=== PATIENT | male | born 1975 | race Caucasian/White ===

== ENCOUNTER 2019-09-21 03:14 | Inpatient (IN) | payer OTHER ==
[2019-09-21 03:44] VITALS: BMI 24.6
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
[2019-09-21] MEDS ORDERED: LIDOCAINE 5% TOPICAL PATCH TP ONE (05:00)
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
[2019-09-21 05:37] LABS: BASO % 0.9 % (0-2.0); EOS % 2.6 % (0-4.5); HEMATOCRIT 23.2 % (35.4-49); HEMOGLOBIN 7.5 GM/dL (11.7-16.9); LYMPH % 13.1 % (8-40); MCH 30.1 pg (25.7-33.7); MCHC 32.4 g/dl (32.0-35.9); MEAN CELL VOLUME 92.7 fl (80-96); MEAN PLT VOLUME 9.7 fl (7.5-11.1); MONO % 7.9 % (3.8-10.2); NEUT % 75.5 % (42.8-82.8); PLATELET COUNT 629 K/MM3 (134-434); RDW 14.2 % (11.9-15.9); WHITE BLOOD COUNT 27.6 K/mm3 (4.0-10.0)
[2019-09-21 06:32] LABS: BASO % 0.4 % (0-2.0); EOS % 2.9 % (0-4.5); HEMATOCRIT 24.5 % (35.4-49); HEMOGLOBIN 7.9 GM/dL (11.7-16.9); LYMPH % 13.5 % (8-40); MCHC 32.3 g/dl (32.0-35.9); MEAN PLT VOLUME 9.9 fl (7.5-11.1); MONO % 6.9 % (3.8-10.2); NEUT % 76.3 % (42.8-82.8); PLATELET COUNT 643 K/MM3 (134-434); RBC 2.63 M/mm3 (4.00-5.60); RDW 14.2 % (11.9-15.9); WHITE BLOOD COUNT 27.1 K/mm3 (4.0-10.0)
[2019-09-21] MEDS ORDERED: morphine CARPU-JECT 2 MG/1 ML DISP.SYRIN IVPUSH ONE (06:43)
[2019-09-21] MEDS ORDERED: MORPHINE SULFATE 2 MG/ML VIAL ONE ×2 (06:50→09:23)
[2019-09-21 06:59] LABS: ALBUMIN 2.8 g/dl (3.4-5.0); BILIRUBIN,TOTAL 0.2 mg/dL (0.2-1); BLOOD UREA NITROGEN 13.6 mg/dL (7-18); CALCIUM 7.9 mg/dL (8.5-10.1); CREATININE 0.9 mg/dL (0.55-1.3); POTASSIUM 4.1 mmol/L (3.5-5.1); TOT PROT 6.4 g/dl (6.4-8.2)
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
[2019-09-21] MEDS ORDERED: morphine CARPU-JECT 4 MG/1 ML DISP.SYRIN IVPUSH ONE (08:30)
[2019-09-21] MEDS ORDERED: CEFTRIAXONE 1,000 MG in DEXTROSE 5%-WATER - 50 ML IVPB ONE (08:31)
[2019-09-21] MEDS ORDERED: AZITHROMYCIN IVPB 500 MG in DEXTROSE 5%-WATER - 250 ML IVPB ONE (08:31)
[2019-09-21] MEDS ORDERED: AZITHROMYCIN IVPB 500 MG/250 ML BAG IVPB ONE (09:24)
[2019-09-21] MEDS ORDERED: CEFTRIAXONE 1 GM/50 ML BAG ONE (09:24)
[2019-09-21 10:14] LABS: ANISOCYTOSIS 1+; MACROCYTOSIS 0; PLATELET ESTIMATE INCREASED
[2019-09-21] MEDS ORDERED: LIDOCAINE 5% TOPICAL PATCH ONE (11:44)
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
[2019-09-21] MEDS ORDERED: LIDOCAINE HCL 5% TOP OINTMENT 50 GM TUBE TP ONE (11:47)
[2019-09-21] MEDS ORDERED: oxyCODONE HCL 5 MG TABLET PO PRN (11:47)
[2019-09-21] MEDS ORDERED: ALBUTEROL SO4 2.5/IPRATROPIUM 0.5 INH SOL 3 ML VIAL.NEB. NEB PRN (11:49)
[2019-09-21] MEDS ORDERED: oxyCODONE HCL 5 MG TABLET ONE (11:58)
[2019-09-21] MEDS ORDERED: PIPERACILLIN/TAZOB 4.5 GM 4.5 GM in DEXTROSE 5%-WATER 100 ML IVPB SCH (12:00)
[2019-09-21] MEDS ORDERED: PIPERACILLIN/TAZOB 4.5 GM 4.5 GM/100 ML BAG IVPB ONE (12:04)
[2019-09-21] MEDS: SODIUM CHLORIDE 1,000 ML IV SCH (12:18)
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
[2019-09-21 12:32] LABS: PH,URINE 6.5 (5.0-8.0); URINE APPEARANCE CLEAR; URINE BILIRUBIN NEGATIVE (NEGATIVE); URINE COLOR YELLOW; URINE GLUCOSE (UA) NEGATIVE (NEGATIVE); URINE KETONE NEGATIVE (NEGATIVE); URINE LEUK ESTERASE NEGATIVE (NEGATIVE); URINE NITRITE NEGATIVE (NEGATIVE); URINE PROTEIN NEGATIVE (NEGATIVE); URINE UROBILINOGEN 0.2 mg/dL (0.2-1.0)
[2019-09-21] MEDS ORDERED: ACETAMINOPHEN 325 MG TABLET (FP) ONE (13:35)
[2019-09-21] MEDS: ACETAMINOPHEN 325 MG TABLET (FP) PO PRN ×3 (13:37→20:26)
--- NOTE | 2019-09-21 14:04 | EKG ---
Test Reason : Blood Pressure : / mmHG Vent. Rate : 092 BPM Atrial Rate : 092 BPM P-R Int : 162 ms QRS Dur : 098 ms QT Int : 370 ms P-R-T Axes : 063 -01 047 degrees QTc Int : 457 ms NORMAL SINUS RHYTHM INCOMPLETE RIGHT BUNDLE BRANCH BLOCK BORDERLINE ECG WHEN COMPARED WITH ECG OF 26-NOV-2008 02:07, VENT. RATE HAS INCREASED BY 36 BPM Confirmed by PALAK CONNOR MD ([id number]) on 09/21/2019 2:04:17 PM Referred By: Confirmed By:PALAK CONNOR MD
[2019-09-21] MEDS ORDERED: FLU VACCINE QUAD 60 MCG/0.5 ML (MDV 19-20) IM ONE (16:10)
[2019-09-21] MEDS: oxyCODONE HCL 5 MG TABLET PO PRN ×2 (16:26→20:25)
[2019-09-21] MEDS ORDERED: PIPERACILLIN/TAZOBACTAM 3.375 GM VIAL IVPB ONE (16:51)
[2019-09-21] MEDS ORDERED: DEXTROSE 5%-WATER - 50 ML IVPB ONE (16:51)
[2019-09-21] MEDS ORDERED: LIDOCAINE PATCH REMOVAL MC SCH (17:00)
[2019-09-21] MEDS: PIPERACILLIN/TAZOB 3.375 GM 3.375 GM in DEXTROSE 5%-WATER - 50 ML IVPB SCH (17:23)
[2019-09-21] MEDS ORDERED: LIDOCAINE 5% TOPICAL PATCH TP SCH ×3 (17:45→18:00)
[2019-09-22] MEDS: oxyCODONE HCL 5 MG TABLET PO PRN ×5 (00:30→22:18)
[2019-09-22] MEDS: ACETAMINOPHEN 325 MG TABLET (FP) PO PRN ×5 (00:31→22:19)
[2019-09-22] MEDS ORDERED: DEXTROSE 5%-WATER - 50 ML IVPB ONE ×3 (00:48→17:01)
[2019-09-22] MEDS ORDERED: PIPERACILLIN/TAZOBACTAM 3.375 GM VIAL IVPB ONE ×3 (00:48→17:00)
[2019-09-22] MEDS: PIPERACILLIN/TAZOB 3.375 GM 3.375 GM in DEXTROSE 5%-WATER - 50 ML IVPB SCH ×3 (01:08→17:26)
[2019-09-22 03:11] LABS: ALBUMIN 2.4 g/dl (3.4-5.0); ALK PHOS 90 U/L (45-117); ANION GAP 5 MMOL/L (8-16); BILIRUBIN,TOTAL 0.1 mg/dL (0.2-1); BLOOD UREA NITROGEN 15.8 mg/dL (7-18); CALCIUM 7.9 mg/dL (8.5-10.1); CHLORIDE 109 mmol/L (98-107); CO2 27 mmol/L (21-32); CREATININE 0.8 mg/dL (0.55-1.3); GLUCOSE,RANDOM 100 mg/dL (74-106); POTASSIUM 4.2 mmol/L (3.5-5.1); SGOT/AST 24 U/L (15-37); SGPT/ALT 30 U/L (13-61); SODIUM 142 mmol/L (136-145); TOT PROT 5.5 g/dl (6.4-8.2)
[2019-09-22] MEDS: LIDOCAINE PATCH REMOVAL MC SCH (06:07)
[2019-09-22] MEDS ORDERED: MORPHINE SULFATE 2 MG/ML VIAL IVPUSH ONE (06:16)
[2019-09-22] MEDS ORDERED: LIDOCAINE 5% TOPICAL PATCH TP ONE (06:16)
[2019-09-22 09:01] LABS: BASO % 0.9 % (0-2.0); EOS % 7.2 % (0-4.5); HEMATOCRIT 23.5 % (35.4-49); HEMOGLOBIN 7.7 GM/dL (11.7-16.9); LYMPH % 17.8 % (8-40); MCHC 32.8 g/dl (32.0-35.9); MEAN CELL VOLUME 94.6 fl (80-96); MEAN PLT VOLUME 9.6 fl (7.5-11.1); MONO % 8.4 % (3.8-10.2); NEUT % 65.7 % (42.8-82.8); PLATELET COUNT 666 K/MM3 (134-434); RBC 2.48 M/mm3 (4.00-5.60); RDW 14.4 % (11.9-15.9); WHITE BLOOD COUNT 15.7 K/mm3 (4.0-10.0)
[2019-09-22 10:02] LABS: ALBUMIN 2.6 g/dl (3.4-5.0); BILIRUBIN,TOTAL 0.2 mg/dL (0.2-1); BLOOD UREA NITROGEN 12.3 mg/dL (7-18); CALCIUM 8.9 mg/dL (8.5-10.1); CREATININE 0.8 mg/dL (0.55-1.3); POTASSIUM 4.4 mmol/L (3.5-5.1); TOT PROT 6.2 g/dl (6.4-8.2)
[2019-09-22] MEDS: POLYETHYLENE GLYCOL 3350 119 GM BTL PO SCH (10:14)
--- NOTE | 2019-09-22 10:36 | PN ---
Progress Note (short form) - Note Progress Note: has pain in left side of chest No sob coughing+ no fever abd pain + tolerating diet Vital Signs - 24 hr 09/21/19 09/21/19 09/22/19 15:03 21:00 01:55 Temperature 98.2 F Pulse Rate 79 Pulse Rate [ 74 Apical] Respiratory 18 18 18 Rate Blood Pressure 103/62 Blood Pressure 108/61 [Left Arm] O2 Sat by Pulse 99 99 Oximetry (%) Current Medications Generic Name Dose Route Start Last Admin Trade Name Freq PRN Reason Stop Dose Admin Acetaminophen 650 mg 09/21/19 11:47 09/21/19 16:25 Tylenol - PO 650 mg Q6H PRN Administration FEVER Acetaminophen 650 mg 09/21/19 15:47 09/22/19 10:14 Tylenol - PO 650 mg Q4H PRN Administration PAIN LEVEL 7-10 Albuterol/Ipratropium 1 amp 09/21/19 11:49 Duoneb - NEB Q6H PRN SHORTNESS OF BREATH Sodium Chloride 1,000 mls @ 83 mls/hr 09/21/19 12:00 09/21/19 12:18 Normal Saline - IV 83 mls/hr ASDIR SELENE Administration Piperacillin Sod/Tazobactam 50 mls @ 100 mls/hr 09/21/19 18:00 09/22/19 10:14 Sod 3.375 gm/ Dextrose IVPB 100 mls/hr Q8H-IV SELENE Administration Protocol Lidocaine 2 patch 09/22/19 10:32 Lidoderm Patch - TP DAILY@1800 SELENE Miscellaneous 1 each 09/22/19 06:00 09/22/19 06:07 Lidoderm Patch Removal MC 1 each DAILY@0600 SELENE Administration Miscellaneous 1 each 09/22/19 18:00 Lidoderm Patch Removal MC 09/22/19 18:01 ONCE ONE Morphine Sulfate 2 mg 09/22/19 10:31 Morphine Injection - IVPUSH Q6H PRN PAIN LEVEL 6-10 Oxycodone HCl 10 mg 09/21/19 15:46 09/22/19 10:15 Roxicodone - PO 10 mg Q4H PRN Administration PAIN LEVEL 7-10 Polyethylene Glycol 17 gm 09/22/19 10:00 09/22/19 10:14 Miralax (For Daily Use) - PO 17 gm DAILY SELENE Administration Laboratory Results - last 24 hr 09/21/19 09/22/19 09/22/19 09:38 02:20 08:00 WBC 15.7 H RBC 2.48 L Hgb 7.7 L Hct 23.5 L MCV 94.6 MCH 31.0 MCHC 32.8 RDW 14.4 Plt Count 666 H MPV 9.6 Absolute Neuts (auto) 10.3 H Neutrophils % 65.7 Lymphocytes % 17.8 D Monocytes % 8.4 Eosinophils % 7.2 H D Basophils % 0.9 Nucleated RBC % 1 H Sodium 142 Potassium 4.2 Chloride 109 H Carbon Dioxide 27 Anion Gap 5 L BUN 15.8 Creatinine 0.8 Est GFR (CKD-EPI)AfAm 127.70 Est GFR (CKD-EPI)NonAf 110.18 Random Glucose 100 Calcium 7.9 L Total Bilirubin 0.1 L AST 24 ALT 30 Alkaline Phosphatase 90 Creatine Kinase 104 Troponin I < 0.02 Total Protein 5.5 L Albumin 2.4 L Urine Color Yellow Urine Appearance Clear Urine pH 6.5 Ur Specific [place] 1.005 L Urine Protein Negative Urine Glucose (UA) Negative Urine Ketones Negative Urine Blood Negative Urine Nitrite Negative Urine Bilirubin Negative Urine Urobilinogen 0.2 Ur Leukocyte Esterase Negative 09/22/19 08:00 WBC RBC Hgb Hct MCV MCH MCHC RDW Plt Count MPV Absolute Neuts (auto) Neutrophils % Lymphocytes % Monocytes % Eosinophils % Basophils % Nucleated RBC % Sodium 141 Potassium 4.4 Chloride 109 H Carbon Dioxide 26 Anion Gap 7 L BUN 12.3 Creatinine 0.8 Est GFR (CKD-EPI)AfAm 127.70 Est GFR (CKD-EPI)NonAf 110.18 Random Glucose 109 H Calcium 8.9 Total Bilirubin 0.2 AST 26 ALT 33 Alkaline Phosphatase 91 Creatine Kinase Troponin I Total Protein 6.2 L Albumin 2.6 L Urine Color Urine Appearance Urine pH Ur Specific [place] Urine Protein Urine Glucose (UA) Urine Ketones Urine Blood Urine Nitrite Urine Bilirubin Urine Urobilinogen Ur Leukocyte Esterase S1 S2 RRR Lungs decreased Abd -s oft, NT , jefferson+ No edema Ecchymosis left flank+ PLAN pain control OOB daily SCD iv antibiotics WBC better Spoke with ID give Pneumococcal vaccine Problem List - Problems (1) Splenic rupture Code(s): S36.09XA - OTHER INJURY OF SPLEEN, INITIAL ENCOUNTER (2) Atelectasis of left lung Code(s): J98.11 - ATELECTASIS (3) Left rib fracture Code(s): S22.32XA - FRACTURE OF ONE RIB, LEFT SIDE, INIT FOR CLOS FX Qualifiers: Encounter type: initial encounter Rib fracture type: multiple ribs Fracture type: closed Qualified Code(s): S22.42XA - Multiple fractures of ribs , left side, initial encounter for closed fracture (4) PNA (pneumonia) Code(s): J18.9 - PNEUMONIA, UNSPECIFIED ORGANISM Qualifiers: Pneumonia type: due to unspecified organism Laterality: left Lung location: lower lobe of lung Qualified Code(s): J18.9 - Pneumonia, unspecified organism
[2019-09-22] MEDS ORDERED: PNEUMOCOCCAL 23 VACCINE 0.5 ML VIAL IM ONE (12:00)
[2019-09-22] MEDS: SODIUM CHLORIDE 1,000 ML IV SCH (12:50)
[2019-09-22] MEDS: MORPHINE SULFATE 2 MG/ML VIAL IVPUSH PRN ×2 (13:03→19:35)
[2019-09-22] MEDS: LIDOCAINE 5% TOPICAL PATCH TP SCH (17:26)
--- NOTE | 2019-09-22 17:54 | EKG ---
Test Reason : Blood Pressure : / mmHG Vent. Rate : 077 BPM Atrial Rate : 077 BPM P-R Int : 176 ms QRS Dur : 100 ms QT Int : 410 ms P-R-T Axes : 054 -04 028 degrees QTc Int : 463 ms SINUS RHYTHM WITH PREMATURE ATRIAL COMPLEXES INCOMPLETE RIGHT BUNDLE BRANCH BLOCK BORDERLINE ECG WHEN COMPARED WITH ECG OF 21-SEP-2019 07:10, PREMATURE ATRIAL COMPLEXES ARE NOW PRESENT Confirmed by PALAK CONNOR MD ([id number]) on 09/22/2019 5:54:12 PM Referred By: Elvia VIDES Confirmed By:PALAK CONNOR MD
[2019-09-22] MEDS ORDERED: LIDOCAINE PATCH REMOVAL MC ONE (18:00)
--- NOTE | 2019-09-22 20:52 | PN ---
Progress Note, Physician History of Present Illness: Pt is alert, afebrile, without respiratory distress. c/o rib pain. - Current Medication List Current Medications: Active Medications Acetaminophen (Tylenol -) 650 mg PO Q6H PRN PRN Reason: FEVER Last Admin: 09/21/19 16:25 Dose: 650 mg Acetaminophen (Tylenol -) 650 mg PO Q4H PRN PRN Reason: PAIN LEVEL 7-10 Last Admin: 09/22/19 15:13 Dose: 650 mg Albuterol/Ipratropium (Duoneb -) 1 amp NEB Q6H PRN PRN Reason: SHORTNESS OF BREATH Sodium Chloride (Normal Saline -) 1,000 mls @ 83 mls/hr IV ASDIR [facility] Last Admin: 09/22/19 12:50 Dose: Not Given Piperacillin Sod/Tazobactam (Sod 3.375 gm/ Dextrose) 50 mls @ 100 mls/hr IVPB Q8H-IV SELENE; Protocol Last Admin: 09/22/19 17:26 Dose: 100 mls/hr Lidocaine (Lidoderm Patch -) 2 patch TP DAILY@1800 [facility] Last Admin: 09/22/19 17:26 Dose: 2 patch Miscellaneous (Lidoderm Patch Removal) 1 each MC DAILY@0600 [facility] Last Admin: 09/22/19 06:07 Dose: 1 each Morphine Sulfate (Morphine Sulfate) 2 mg IVPUSH Q6H PRN PRN Reason: PAIN LEVEL 6-10 Last Admin: 09/22/19 19:35 Dose: 2 mg Oxycodone HCl (Roxicodone -) 10 mg PO Q4H PRN PRN Reason: PAIN LEVEL 7-10 Last Admin: 09/22/19 15:12 Dose: 10 mg Polyethylene Glycol (Miralax (For Daily Use) -) 17 gm PO DAILY [facility] Last Admin: 09/22/19 10:14 Dose: 17 gm - Objective Vital Signs: Vital Signs Temperature 98.3 F 09/22/19 13:48 Pulse Rate 68 09/22/19 13:48 Respiratory Rate 18 09/22/19 13:48 Blood Pressure 111/63 09/22/19 13:48 O2 Sat by Pulse Oximetry (%) 98 09/22/19 09:00 Constitutional: Yes: No Distress, Calm Cardiovascular: Yes: Regular Rate and Rhythm Respiratory: Yes: CTA Bilaterally Gastrointestinal: Yes: Normal Bowel Sounds, Soft Genitourinary: Yes: WNL Musculoskeletal: Yes: Other (rib pain) Edema: No Integumentary: Yes: WNL Wound/Incision: Yes: Clean/Dry Neurological: Yes: Alert, Oriented Labs: CBC, BMP 09/22/19 08:00 09/22/19 08:00 Microbiology 09/21/19 13:05 Blood - Peripheral Venous Blood Culture - Preliminary NO GROWTH OBTAINED AFTER 24 HOURS, INCUBATION TO CONTINUE FOR 4 DAYS. 09/21/19 13:10 Blood - Peripheral Venous Blood Culture - Preliminary NO GROWTH OBTAINED AFTER 24 HOURS, INCUBATION TO CONTINUE FOR 4 DAYS. 09/21/19 09:38 Urine - Urine Clean Catch Urine Culture - Final NO GROWTH OBTAINED - ....Imaging Chest X-ray: Report Reviewed Cat Scan: Report Reviewed Problem List - Problems (1) Atelectasis of left lung Code(s): J98.11 - ATELECTASIS (2) Left rib fracture Code(s): S22.32XA - FRACTURE OF ONE RIB, LEFT SIDE, INIT FOR CLOS FX Qualifiers: Encounter type: initial encounter Rib fracture type: multiple ribs Fracture type: closed Qualified Code(s): S22.42XA - Multiple fractures of ribs , left side, initial encounter for closed fracture (3) PNA (pneumonia) Code(s): J18.9 - PNEUMONIA, UNSPECIFIED ORGANISM Qualifiers: Pneumonia type: due to unspecified organism Laterality: left Lung location: lower lobe of lung Qualified Code(s): J18.9 - Pneumonia, unspecified organism (4) Splenic rupture Code(s): S36.09XA - OTHER INJURY OF SPLEEN, INITIAL ENCOUNTER Assessment/Plan Leukocytosis PNA Traumatic splenic rupture s/p splenectomy Rib fractures Anemia -- wbc trending down -- continue antibiotics -- continue monitor wbc vitals currently stable
[2019-09-23] MEDS ORDERED: DEXTROSE 5%-WATER - 50 ML IVPB ONE ×3 (00:28→16:23)
[2019-09-23] MEDS ORDERED: PIPERACILLIN/TAZOBACTAM 3.375 GM VIAL IVPB ONE ×3 (00:28→16:22)
[2019-09-23] MEDS: PIPERACILLIN/TAZOB 3.375 GM 3.375 GM in DEXTROSE 5%-WATER - 50 ML IVPB SCH ×3 (01:12→17:07)
[2019-09-23] MEDS: MORPHINE SULFATE 2 MG/ML VIAL IVPUSH PRN ×4 (01:40→21:37)
[2019-09-23] MEDS: oxyCODONE HCL 5 MG TABLET PO PRN ×3 (04:08→23:42)
[2019-09-23] MEDS: ACETAMINOPHEN 325 MG TABLET (FP) PO PRN ×3 (04:10→23:43)
[2019-09-23] MEDS: LIDOCAINE PATCH REMOVAL MC SCH (06:35)
[2019-09-23 08:00] LABS: BASO % 0.8 % (0-2.0); EOS % 6.5 % (0-4.5); HEMATOCRIT 24.3 % (35.4-49); HEMOGLOBIN 7.7 GM/dL (11.7-16.9); LYMPH % 21.5 % (8-40); MCH 30.1 pg (25.7-33.7); MCHC 31.7 g/dl (32.0-35.9); MEAN PLT VOLUME 9.3 fl (7.5-11.1); MONO % 9.5 % (3.8-10.2); NEUT % 61.7 % (42.8-82.8); PLATELET COUNT 722 K/MM3 (134-434); RBC 2.56 M/mm3 (4.00-5.60); RDW 15.1 % (11.9-15.9)
[2019-09-23 08:54] LABS: ALBUMIN 2.6 g/dl (3.4-5.0); BILIRUBIN,TOTAL 0.3 mg/dL (0.2-1); BLOOD UREA NITROGEN 8.9 mg/dL (7-18); CALCIUM 9.5 mg/dL (8.5-10.1); CREATININE 0.8 mg/dL (0.55-1.3); POTASSIUM 5.2 mmol/L (3.5-5.1); TOT PROT 6.3 g/dl (6.4-8.2)
[2019-09-23] MEDS ORDERED: ONDANSETRON 4 MG/2 ML VIAL ONE (08:58)
[2019-09-23] MEDS: ONDANSETRON 4 MG/2 ML VIAL IVPB PRN ×4 (09:02→23:57)
[2019-09-23] MEDS: POLYETHYLENE GLYCOL 3350 119 GM BTL PO SCH (09:05)
--- NOTE | 2019-09-23 11:54 | PN ---
Progress Note (short form) - Note Progress Note: pt seen/ examined chart reviewed awake/comfortable was agitated earlier today walks in hallway Vital Signs Temp 98 F 09/23/19 06:00 Pulse 71 09/23/19 06:00 Resp 20 09/23/19 06:00 BP 116/69 09/23/19 06:00 Pulse Ox 98 09/23/19 08:30 Intake & Output 09/22/19 09/22/19 09/23/19 11:59 23:59 11:59 Intake Total 1797 350 350 Balance 1797 350 350 Intake: IV 747 Normal Saline - 1,000 ml 747 @ 83 mls/hr IV ASDIR SELENE Rx#:[id number] IVPB 50 50 50 Oral 480 300 300 Oral Supplement 520 Other: Voiding Method Toilet Toilet Toilet # Unmeasured Voids Void 2 1 1 Bowel Movement Yes: Formed brown stool as per patient No No # Bowel Movements 1 Active Medications Acetaminophen (Tylenol -) 650 mg PO Q6H PRN PRN Reason: FEVER Last Admin: 09/23/19 10:29 Dose: 650 mg Acetaminophen (Tylenol -) 650 mg PO Q4H PRN PRN Reason: PAIN LEVEL 7-10 Last Admin: 09/23/19 04:10 Dose: 650 mg Albuterol/Ipratropium (Duoneb -) 1 amp NEB Q6H PRN PRN Reason: SHORTNESS OF BREATH Sodium Chloride (Normal Saline -) 1,000 mls @ 83 mls/hr IV ASDIR SELENE Last Admin: 09/22/19 12:50 Dose: Not Given Piperacillin Sod/Tazobactam (Sod 3.375 gm/ Dextrose) 50 mls @ 100 mls/hr IVPB Q8H-IV SELENE; Protocol Last Admin: 09/23/19 09:05 Dose: 100 mls/hr Lidocaine (Lidoderm Patch -) 2 patch TP DAILY@1800 [facility] Last Admin: 09/22/19 17:26 Dose: 2 patch Miscellaneous (Lidoderm Patch Removal) 1 each MC DAILY@0600 [facility] Last Admin: 09/23/19 06:35 Dose: 1 each Morphine Sulfate (Morphine Sulfate) 2 mg IVPUSH Q6H PRN PRN Reason: PAIN LEVEL 6-10 Last Admin: 09/23/19 08:02 Dose: 2 mg Ondansetron HCl (Zofran Injection) 8 mg IVPB Q4H PRN PRN Reason: NAUSEA AND/OR VOMITING Last Admin: 09/23/19 09:02 Dose: 8 mg Oxycodone HCl (Roxicodone -) 10 mg PO Q4H PRN PRN Reason: PAIN LEVEL 7-10 Last Admin: 09/23/19 10:29 Dose: 10 mg Polyethylene Glycol (Miralax (For Daily Use) -) 17 gm PO DAILY [facility] Last Admin: 09/23/19 09:05 Dose: Not Given CBC, BMP 09/23/19 06:45 09/23/19 06:45 Microbiology 09/21/19 13:05 Blood Culture - Preliminary Blood - Peripheral Venous NO GROWTH OBTAINED AFTER 24 HOURS, INCUBATION TO CONTINUE FOR 4 DAYS. 09/21/19 13:10 Blood Culture - Preliminary Blood - Peripheral Venous NO GROWTH OBTAINED AFTER 24 HOURS, INCUBATION TO CONTINUE FOR 4 DAYS. 09/21/19 09:38 Urine Culture - Final Urine - Urine Clean Catch NO GROWTH OBTAINED Physical Exam Awake/ comfortable S1 S2 RRR Lungs decreased Abd -s oft, NT , jefferson+ No edema Ecchymosis left flank+ PLAN pain control- consider tapering opiods OOB daily SCD iv antibiotics WBC better Detox consult Zofron for nausea Problem List - Problems (1) Splenic rupture Code(s): S36.09XA - OTHER INJURY OF SPLEEN, INITIAL ENCOUNTER (2) Atelectasis of left lung Code(s): J98.11 - ATELECTASIS (3) Left rib fracture Code(s): S22.32XA - FRACTURE OF ONE RIB, LEFT SIDE, INIT FOR CLOS FX Qualifiers: Encounter type: initial encounter Rib fracture type: multiple ribs Fracture type: closed Qualified Code(s): S22.42XA - Multiple fractures of ribs , left side, initial encounter for closed fracture (4) PNA (pneumonia) Code(s): J18.9 - PNEUMONIA, UNSPECIFIED ORGANISM Qualifiers: Pneumonia type: due to unspecified organism Laterality: left Lung location: lower lobe of lung Qualified Code(s): J18.9 - Pneumonia, unspecified organism
[2019-09-23] MEDS ORDERED: PROMETHAZINE HCL 25 MG/1 ML VIAL IVPB ONE ×2 (14:00→14:45)
--- NOTE | 2019-09-23 14:53 | PN ---
Progress Note, Physician History of Present Illness: patient very naseous - Current Medication List Current Medications: Active Medications Acetaminophen (Tylenol -) 650 mg PO Q6H PRN PRN Reason: FEVER Last Admin: 09/23/19 10:29 Dose: 650 mg Acetaminophen (Tylenol -) 650 mg PO Q4H PRN PRN Reason: PAIN LEVEL 7-10 Last Admin: 09/23/19 04:10 Dose: 650 mg Albuterol/Ipratropium (Duoneb -) 1 amp NEB Q6H PRN PRN Reason: SHORTNESS OF BREATH Ascorbic Acid (Vitamin C -) 500 mg PO BID [facility] Sodium Chloride (Normal Saline -) 1,000 mls @ 83 mls/hr IV ASDIR [facility] Last Admin: 09/22/19 12:50 Dose: Not Given Piperacillin Sod/Tazobactam (Sod 3.375 gm/ Dextrose) 50 mls @ 100 mls/hr IVPB Q8H-IV [facility]ELENE; Protocol Last Admin: 09/23/19 09:05 Dose: 100 mls/hr Lidocaine (Lidoderm Patch -) 2 patch TP DAILY@1800 [facility] Last Admin: 09/22/19 17:26 Dose: 2 patch Miscellaneous (Lidoderm Patch Removal) 1 each MC DAILY@0600 [facility] Last Admin: 09/23/19 06:35 Dose: 1 each Morphine Sulfate (Morphine Sulfate) 2 mg IVPUSH Q6H PRN PRN Reason: PAIN LEVEL 6-10 Last Admin: 09/23/19 14:11 Dose: 2 mg Multivitamins/Minerals/Vitamin C (Tab-A-Vit -) 1 tab PO DAILY [facility] Ondansetron HCl (Zofran Injection) 8 mg IVPB Q4H PRN PRN Reason: NAUSEA AND/OR VOMITING Last Admin: 09/23/19 12:20 Dose: 8 mg Oxycodone HCl (Roxicodone -) 10 mg PO Q4H PRN PRN Reason: PAIN LEVEL 7-10 Last Admin: 09/23/19 10:29 Dose: 10 mg Polyethylene Glycol (Miralax (For Daily Use) -) 17 gm PO DAILY [facility] Last Admin: 09/23/19 09:05 Dose: Not Given - Objective Vital Signs: Vital Signs Temperature 97.8 F 09/23/19 13:36 Pulse Rate 83 09/23/19 13:36 Respiratory Rate 20 09/23/19 13:36 Blood Pressure 121/74 09/23/19 13:36 O2 Sat by Pulse Oximetry (%) 98 09/23/19 08:30 Constitutional: Yes: Calm, Mild Distress Cardiovascular: Yes: S1, S2 Respiratory: Yes: Regular, CTA Bilaterally Gastrointestinal: Yes: Normal Bowel Sounds, Soft Musculoskeletal: Yes: WNL Extremities: Yes: WNL Wound/Incision: Yes: Clean/Dry Neurological: Yes: Alert, Oriented Psychiatric: Yes: Alert, Oriented Labs: CBC, BMP 09/23/19 06:45 09/23/19 06:45 Assessment/Plan Problem List - Problems (1) Atelectasis of left lung Code(s): J98.11 - ATELECTASIS (2) Left rib fracture Code(s): S22.32XA - FRACTURE OF ONE RIB, LEFT SIDE, INIT FOR CLOS FX Qualifiers: Encounter type: initial encounter Rib fracture type: multiple ribs Fracture type: closed Qualified Code(s): S22.42XA - Multiple fractures of ribs , left side, initial encounter for closed fracture (3) PNA (pneumonia) Code(s): J18.9 - PNEUMONIA, UNSPECIFIED ORGANISM Qualifiers: Pneumonia type: due to unspecified organism Laterality: left Lung location: lower lobe of lung Qualified Code(s): J18.9 - Pneumonia, unspecified organism (4) Splenic rupture Code(s): S36.09XA - OTHER INJURY OF SPLEEN, INITIAL ENCOUNTER Assessment/Plan Leukocytosis PNA Traumatic splenic rupture s/p splenectomy Rib fractures Anemia i am worried if patient is having a withdrawal type of picture is very anxious and nauseous close watch rest as per the team
[2019-09-23] MEDS: ASCORBIC ACID 500 MG TABLET (FP) PO SCH ×2 (14:57→21:25)
[2019-09-23] MEDS: MULTIVITAMINS (DAILY MVI) TABLET (FP) PO SCH (14:57)
[2019-09-23] MEDS: SODIUM CHLORIDE 1,000 ML IV SCH (15:09)
[2019-09-23] MEDS: LORazepam 2 MG/ML SDV VIAL IVPUSH PRN (16:48)
[2019-09-23] MEDS: LIDOCAINE 5% TOPICAL PATCH TP SCH (21:25)
[2019-09-24] MEDS ORDERED: PIPERACILLIN/TAZOBACTAM 3.375 GM VIAL IVPB ONE ×3 (02:23→17:15)
[2019-09-24] MEDS ORDERED: DEXTROSE 5%-WATER - 50 ML IVPB ONE ×3 (02:23→17:15)
[2019-09-24] MEDS: PIPERACILLIN/TAZOB 3.375 GM 3.375 GM in DEXTROSE 5%-WATER - 50 ML IVPB SCH ×3 (02:32→17:24)
[2019-09-24] MEDS: SODIUM CHLORIDE 1,000 ML IV SCH ×2 (02:51→12:36)
[2019-09-24] MEDS: MORPHINE SULFATE 2 MG/ML VIAL IVPUSH PRN ×4 (04:15→22:04)
[2019-09-24] MEDS: LIDOCAINE PATCH REMOVAL MC SCH (05:29)
[2019-09-24] MEDS: oxyCODONE HCL 5 MG TABLET PO PRN ×2 (06:56→13:08)
[2019-09-24] MEDS: ACETAMINOPHEN 325 MG TABLET (FP) PO PRN ×2 (06:56→13:09)
[2019-09-24] MEDS: ASCORBIC ACID 500 MG TABLET (FP) PO SCH ×2 (09:15→22:06)
[2019-09-24] MEDS: MULTIVITAMINS (DAILY MVI) TABLET (FP) PO SCH (09:15)
[2019-09-24] MEDS: ONDANSETRON 4 MG/2 ML VIAL IVPB PRN (09:15)
[2019-09-24] MEDS: POLYETHYLENE GLYCOL 3350 119 GM BTL PO SCH (09:17)
--- NOTE | 2019-09-24 12:11 | PN ---
Progress Note (short form) - Note Progress Note: has pain in left side of chest No sob Vital Signs - 24 hr 09/23/19 09/23/19 09/23/19 13:36 20:01 21:00 Temperature 97.8 F 98.4 F Pulse Rate 83 96 H Respiratory 20 20 Rate Blood Pressure 121/74 119/77 O2 Sat by Pulse 98 Oximetry (%) 09/24/19 06:20 Temperature 99.1 F Pulse Rate 89 Respiratory 20 Rate Blood Pressure 123/72 O2 Sat by Pulse Oximetry (%) Current Medications Generic Name Dose Route Start Last Admin Trade Name Freq PRN Reason Stop Dose Admin Acetaminophen 650 mg 09/21/19 11:47 09/23/19 10:29 Tylenol - PO 650 mg Q6H PRN Administration FEVER Acetaminophen 650 mg 09/21/19 15:47 09/24/19 06:56 Tylenol - PO 650 mg Q4H PRN Administration PAIN LEVEL 7-10 Albuterol/Ipratropium 1 amp 09/21/19 11:49 Duoneb - NEB Q6H PRN SHORTNESS OF BREATH Ascorbic Acid 500 mg 09/23/19 12:30 09/24/19 09:15 Vitamin C - PO 500 mg BID [facility]ELENE Administration Sodium Chloride 1,000 mls @ 83 mls/hr 09/21/19 12:00 09/24/19 02:51 Normal Saline - IV 83 mls/hr ASDIR SELENE Administration Piperacillin Sod/Tazobactam 50 mls @ 100 mls/hr 09/21/19 18:00 09/24/19 09:15 Sod 3.375 gm/ Dextrose IVPB 100 mls/hr Q8H-IV SELENE Administration Protocol Lidocaine 2 patch 09/22/19 10:32 09/23/19 21:25 Lidoderm Patch - TP 2 patch DAILY@1800 [facility] Administration Lorazepam 1 mg 09/23/19 15:25 09/23/19 16:48 Ativan Injection - IVPUSH 1 mg Q8H PRN Administration AGITATION Miscellaneous 1 each 09/22/19 06:00 09/24/19 05:29 Lidoderm Patch Removal MC 1 each DAILY@0600 [facility] Administration Morphine Sulfate 2 mg 09/22/19 10:35 09/24/19 04:15 Morphine Sulfate IVPUSH 2 mg Q6H PRN Administration PAIN LEVEL 6-10 Multivitamins/Minerals/Vitamin C 1 tab 09/23/19 12:30 09/24/19 09:15 Tab-A-Vit - PO 1 tab DAILY [facility] Administration Ondansetron HCl 8 mg 09/23/19 09:00 09/24/19 09:15 Zofran Injection IVPB 8 mg Q4H PRN Administration NAUSEA AND/OR VOMITING Oxycodone HCl 10 mg 09/21/19 15:46 09/24/19 06:56 Roxicodone - PO 10 mg Q4H PRN Administration PAIN LEVEL 7-10 Polyethylene Glycol 17 gm 09/22/19 10:00 09/24/19 09:17 Miralax (For Daily Use) - PO Not Given DAILY [facility] S1 S2 RRR Lungs decreased Abd -s oft, NT , jefferson+ No edema Ecchymosis left flank+ PLAN pain control-- taper off OOB daily SCD iv antibiotics-->change to ?po WBC better detox eval -- was on Suboxone with PMD and was on Methadone at [facility]- I left a message with Detox dc planning resume diet-- not nauseous today Problem List - Problems (1) Splenic rupture Code(s): S36.09XA - OTHER INJURY OF SPLEEN, INITIAL ENCOUNTER (2) Atelectasis of left lung Code(s): J98.11 - ATELECTASIS (3) Left rib fracture Code(s): S22.32XA - FRACTURE OF ONE RIB, LEFT SIDE, INIT FOR CLOS FX Qualifiers: Encounter type: initial encounter Rib fracture type: multiple ribs Fracture type: closed Qualified Code(s): S22.42XA - Multiple fractures of ribs , left side, initial encounter for closed fracture (4) PNA (pneumonia) Code(s): J18.9 - PNEUMONIA, UNSPECIFIED ORGANISM Qualifiers: Pneumonia type: due to unspecified organism Laterality: left Lung location: lower lobe of lung Qualified Code(s): J18.9 - Pneumonia, unspecified organism
--- NOTE | 2019-09-24 15:45 | PN ---
Progress Note, Physician History of Present Illness: stable improving - Current Medication List Current Medications: Active Medications Acetaminophen (Tylenol -) 650 mg PO Q6H PRN PRN Reason: FEVER Last Admin: 09/24/19 13:09 Dose: 650 mg Acetaminophen (Tylenol -) 650 mg PO Q4H PRN PRN Reason: PAIN LEVEL 7-10 Last Admin: 09/24/19 06:56 Dose: 650 mg Albuterol/Ipratropium (Duoneb -) 1 amp NEB Q6H PRN PRN Reason: SHORTNESS OF BREATH Ascorbic Acid (Vitamin C -) 500 mg PO BID [facility] Last Admin: 09/24/19 09:15 Dose: 500 mg Sodium Chloride (Normal Saline -) 1,000 mls @ 83 mls/hr IV ASDIR [facility] Last Admin: 09/24/19 12:36 Dose: Not Given Piperacillin Sod/Tazobactam (Sod 3.375 gm/ Dextrose) 50 mls @ 100 mls/hr IVPB Q8H-IV [facility]ELENE; Protocol Last Admin: 09/24/19 09:15 Dose: 100 mls/hr Lidocaine (Lidoderm Patch -) 2 patch TP DAILY@1800 [facility] Last Admin: 09/23/19 21:25 Dose: 2 patch Lorazepam (Ativan Injection -) 1 mg IVPUSH Q8H PRN PRN Reason: AGITATION Last Admin: 09/23/19 16:48 Dose: 1 mg Miscellaneous (Lidoderm Patch Removal) 1 each MC DAILY@0600 [facility] Last Admin: 09/24/19 05:29 Dose: 1 each Morphine Sulfate (Morphine Sulfate) 1 mg IVPUSH Q6H PRN PRN Reason: PAIN LEVEL 6-10 Multivitamins/Minerals/Vitamin C (Tab-A-Vit -) 1 tab PO DAILY [facility] Last Admin: 09/24/19 09:15 Dose: 1 tab Ondansetron HCl (Zofran Injection) 8 mg IVPB Q4H PRN PRN Reason: NAUSEA AND/OR VOMITING Last Admin: 09/24/19 09:15 Dose: 8 mg Oxycodone HCl (Roxicodone -) 10 mg PO Q4H PRN PRN Reason: PAIN LEVEL 7-10 Last Admin: 09/24/19 13:08 Dose: 10 mg Polyethylene Glycol (Miralax (For Daily Use) -) 17 gm PO DAILY [facility] Last Admin: 12/24/19 09:17 Dose: Not Given - Objective Vital Signs: Vital Signs Temperature 99.1 F 09/24/19 06:20 Pulse Rate 89 09/24/19 06:20 Respiratory Rate 20 09/24/19 06:20 Blood Pressure 123/72 09/24/19 06:20 O2 Sat by Pulse Oximetry (%) 98 09/24/19 09:00 Constitutional: Yes: No Distress, Calm Cardiovascular: Yes: S1, S2 Respiratory: Yes: Regular, CTA Bilaterally Gastrointestinal: Yes: Normal Bowel Sounds, Soft Musculoskeletal: Yes: WNL Extremities: Yes: WNL Neurological: Yes: Alert, Oriented Psychiatric: Yes: Alert, Oriented Labs: CBC, BMP 09/23/19 06:45 09/23/19 06:45 Assessment/Plan Problem List - Problems (1) Atelectasis of left lung Code(s): J98.11 - ATELECTASIS (2) Left rib fracture Code(s): S22.32XA - FRACTURE OF ONE RIB, LEFT SIDE, INIT FOR CLOS FX Qualifiers: Encounter type: initial encounter Rib fracture type: multiple ribs Fracture type: closed Qualified Code(s): S22.42XA - Multiple fractures of ribs , left side, initial encounter for closed fracture (3) PNA (pneumonia) Code(s): J18.9 - PNEUMONIA, UNSPECIFIED ORGANISM Qualifiers: Pneumonia type: due to unspecified organism Laterality: left Lung location: lower lobe of lung Qualified Code(s): J18.9 - Pneumonia, unspecified organism (4) Splenic rupture Code(s): S36.09XA - OTHER INJURY OF SPLEEN, INITIAL ENCOUNTER Assessment/Plan Leukocytosis PNA Traumatic splenic rupture s/p splenectomy Rib fractures Anemia continue current mgmt rest as per the team
[2019-09-24] MEDS: LIDOCAINE 5% TOPICAL PATCH TP SCH (17:24)
[2019-09-25] MEDS ORDERED: MORPHINE SULFATE 2 MG/ML VIAL IVPUSH ONE (00:15)
[2019-09-25] MEDS ORDERED: PIPERACILLIN/TAZOBACTAM 3.375 GM VIAL IVPB ONE ×2 (00:49→10:32)
[2019-09-25] MEDS ORDERED: DEXTROSE 5%-WATER - 50 ML IVPB ONE ×2 (00:50→10:32)
[2019-09-25] MEDS: PIPERACILLIN/TAZOB 3.375 GM 3.375 GM in DEXTROSE 5%-WATER - 50 ML IVPB SCH ×4 (01:05→18:00)
[2019-09-25] MEDS: LIDOCAINE PATCH REMOVAL MC SCH (06:07)
[2019-09-25] MEDS: MORPHINE SULFATE 2 MG/ML VIAL IVPUSH PRN (06:15)
[2019-09-25] MEDS: ONDANSETRON 4 MG/2 ML VIAL IVPB PRN (07:07)
[2019-09-25] MEDS: LORazepam 2 MG/ML SDV VIAL IVPUSH PRN (07:10)
[2019-09-25] MEDS ORDERED: oxyCODONE HCL 5 MG TABLET PO PRN (07:48)
--- NOTE | 2019-09-25 10:18 | PN ---
Progress Note (short form) - Note Progress Note: Pt seen/ examined withdrawing anxious staff also reports left floor yesterday for an hour !! refusing fluids Detox did not come yet despite calling many times !! Vital Signs Temp 99.2 F 09/25/19 05:24 Pulse 74 09/25/19 05:24 Resp 18 09/25/19 05:24 BP 106/64 09/25/19 05:24 Pulse Ox 96 09/24/19 21:00 Intake & Output 09/24/19 09/24/19 09/25/19 11:59 23:59 11:59 Intake Total 831 1490 730 Balance 831 1490 730 Intake: IV 581 200 Normal Saline - 1,000 ml 581 200 @ 83 mls/hr IV ASDIR SELENE Rx#:[id number] IVPB 50 50 50 Oral 200 240 680 Oral Supplement 1000 Other: Voiding Method Urinal Toilet Toilet # Unmeasured Voids Void 2 3 Bowel Movement Yes No Active Medications Acetaminophen (Tylenol -) 650 mg PO Q6H PRN PRN Reason: FEVER Last Admin: 09/24/19 13:09 Dose: 650 mg Acetaminophen (Tylenol -) 650 mg PO Q4H PRN PRN Reason: PAIN LEVEL 1-6 Last Admin: 09/24/19 06:56 Dose: 650 mg Albuterol/Ipratropium (Duoneb -) 1 amp NEB Q6H PRN PRN Reason: SHORTNESS OF BREATH Ascorbic Acid (Vitamin C -) 500 mg PO BID [facility] Last Admin: 09/24/19 22:06 Dose: 500 mg Sodium Chloride (Normal Saline -) 1,000 mls @ 83 mls/hr IV ASDIR [facility]ELENE Last Admin: 09/24/19 12:36 Dose: Not Given Piperacillin Sod/Tazobactam (Sod 3.375 gm/ Dextrose) 50 mls @ 100 mls/hr IVPB Q8H-IV SELENE; Protocol Last Admin: 09/25/19 01:05 Dose: 100 mls/hr Lidocaine (Lidoderm Patch -) 2 patch TP DAILY@1800 [facility] Last Admin: 09/24/19 17:24 Dose: 2 patch Lorazepam (Ativan Injection -) 1 mg IVPUSH Q8H PRN PRN Reason: AGITATION Last Admin: 09/25/19 07:10 Dose: 1 mg Methadone HCl (Dolophine -) 30 mg PO DAILY [facility] Miscellaneous (Lidoderm Patch Removal) 1 each MC DAILY@0600 [facility] Last Admin: 09/25/19 06:07 Dose: 1 each Multivitamins/Minerals/Vitamin C (Tab-A-Vit -) 1 tab PO DAILY [facility] Last Admin: 09/24/19 09:15 Dose: 1 tab Ondansetron HCl (Zofran Injection) 8 mg IVPB Q4H PRN PRN Reason: NAUSEA AND/OR VOMITING Last Admin: 09/25/19 07:07 Dose: 8 mg Polyethylene Glycol (Miralax (For Daily Use) -) 17 gm PO DAILY [facility] Last Admin: 09/24/19 09:17 Dose: Not Given CBC, BMP 09/23/19 06:45 09/23/19 06:45 Physical Exam Awake/ Anxious/agitative S1 S2 RRR Lungs decreased Abd -soft , jefferson+ No edema PLAN Opiods withdrawl discussed with RN d/c morphine/ percocoet Start on methadone-- discussed with pharmacy- aproved for 20 mg x 1 dose pt says [facility] had put on methadone - 30 mg Requesting again detox to follow stat urine drug screen Cant leave floor without permission. will follow
[2019-09-25] MEDS: POLYETHYLENE GLYCOL 3350 119 GM BTL PO SCH (10:19)
[2019-09-25] MEDS ORDERED: METHADONE HCL 5 MG TABLET (FOR DETOX USE ONLY) PO SCH (10:30)
[2019-09-25] MEDS ORDERED: METHADONE HCL 10 MG TABLET PO ONE (10:30)
[2019-09-25] MEDS: MULTIVITAMINS (DAILY MVI) TABLET (FP) PO SCH (10:35)
[2019-09-25] MEDS: ASCORBIC ACID 500 MG TABLET (FP) PO SCH ×2 (10:35→22:01)
[2019-09-25] MEDS: SODIUM CHLORIDE 1,000 ML IV SCH (18:00)
[2019-09-25] MEDS: LIDOCAINE 5% TOPICAL PATCH TP SCH (22:01)
[2019-09-26] MEDS: PIPERACILLIN/TAZOB 3.375 GM 3.375 GM in DEXTROSE 5%-WATER - 50 ML IVPB SCH ×2 (02:00→09:19)
[2019-09-26] MEDS ORDERED: ACETAMINOPHEN 1000 MG/100 ML VIAL (NON FORMULARY) IVPB ONE ×2 (04:43→11:33)
[2019-09-26] MEDS: POLYETHYLENE GLYCOL 3350 119 GM BTL PO SCH (09:18)
[2019-09-26] MEDS: ASCORBIC ACID 500 MG TABLET (FP) PO SCH (09:40)
[2019-09-26] MEDS: MULTIVITAMINS (DAILY MVI) TABLET (FP) PO SCH (09:40)
[2019-09-26 10:01] LABS: BASO % 0.6 % (0-2.0); EOS % 6.2 % (0-4.5); HEMATOCRIT 30.4 % (35.4-49); HEMOGLOBIN 9.9 GM/dL (11.7-16.9); LYMPH % 15.9 % (8-40); MCH 30.9 pg (25.7-33.7); MCHC 32.4 g/dl (32.0-35.9); MEAN CELL VOLUME 95.3 fl (80-96); MONO % 6.9 % (3.8-10.2); NEUT % 70.4 % (42.8-82.8); PLATELET COUNT 832 K/MM3 (134-434); RBC 3.19 M/mm3 (4.00-5.60); RDW 16.4 % (11.9-15.9); WHITE BLOOD COUNT 12.8 K/mm3 (4.0-10.0)
[2019-09-26 10:27] LABS: ALBUMIN 3.1 g/dl (3.4-5.0); BILIRUBIN,TOTAL 0.2 mg/dL (0.2-1); BLOOD UREA NITROGEN 12.8 mg/dL (7-18); CALCIUM 9.4 mg/dL (8.5-10.1); POTASSIUM 4.4 mmol/L (3.5-5.1); TOT PROT 7.1 g/dl (6.4-8.2)
[2019-09-26 10:44] LABS: COCAINE, UR NEGATIVE ng/ml (CUTOFF=300); PHENCYCLIDINE,URINE NEGATIVE ng/ml (CUTOFF=25); URINE AMPHETAMINES NEGATIVE ng/ml (CUTOFF=500); URINE BARBITURATES NEGATIVE ng/ml (CUTOFF=200); URINE BENZODIAZEPINES NEGATIVE ng/ml (CUTOFF=200)
[2019-09-26 10:57] LABS: OPIATES, URI POSITIVE ng/ml (CUTOFF=300)
[2019-09-26 10:58] LABS: METHADONE, UR POSITIVE ng/ml (CUTOFF=300)
--- NOTE | 2019-09-26 11:02 | PN ---
Progress Note, Physician History of Present Illness: stable no new issues - Current Medication List Current Medications: Active Medications Acetaminophen (Tylenol -) 650 mg PO Q6H PRN PRN Reason: FEVER Last Admin: 09/24/19 13:09 Dose: 650 mg Acetaminophen (Tylenol -) 650 mg PO Q4H PRN PRN Reason: PAIN LEVEL 1-6 Last Admin: 09/24/19 06:56 Dose: 650 mg Albuterol/Ipratropium (Duoneb -) 1 amp NEB Q6H PRN PRN Reason: SHORTNESS OF BREATH Ascorbic Acid (Vitamin C -) 500 mg PO BID [facility] Last Admin: 09/26/19 09:40 Dose: 500 mg Sodium Chloride (Normal Saline -) 1,000 mls @ 83 mls/hr IV ASDIR SELENE Last Admin: 09/25/19 18:00 Dose: Not Given Piperacillin Sod/Tazobactam (Sod 3.375 gm/ Dextrose) 50 mls @ 100 mls/hr IVPB Q8H-IV [facility]ELENE; Protocol Last Admin: 09/26/19 09:19 Dose: Not Given Lidocaine (Lidoderm Patch -) 2 patch TP DAILY@1800 [facility] Last Admin: 09/25/19 22:01 Dose: 2 patch Lorazepam (Ativan Injection -) 1 mg IVPUSH Q8H PRN PRN Reason: AGITATION Last Admin: 09/25/19 07:10 Dose: 1 mg Methadone HCl (Dolophine -) 30 mg PO DAILY [facility] Miscellaneous (Lidoderm Patch Removal) 1 each MC DAILY@0600 [facility] Last Admin: 09/25/19 06:07 Dose: 1 each Multivitamins/Minerals/Vitamin C (Tab-A-Vit -) 1 tab PO DAILY [facility] Last Admin: 09/26/19 09:40 Dose: 1 tab Ondansetron HCl (Zofran Injection) 8 mg IVPB Q4H PRN PRN Reason: NAUSEA AND/OR VOMITING Last Admin: 09/25/19 07:07 Dose: 8 mg Polyethylene Glycol (Miralax (For Daily Use) -) 17 gm PO DAILY [facility] Last Admin: 09/26/19 09:18 Dose: Not Given - Objective Vital Signs: Vital Signs Temperature 98.0 F 09/26/19 06:39 Pulse Rate 67 09/26/19 06:39 Respiratory Rate 20 09/26/19 09:00 Blood Pressure 104/60 09/26/19 06:39 O2 Sat by Pulse Oximetry (%) 96 09/26/19 09:00 Constitutional: Yes: No Distress, Calm Cardiovascular: Yes: S1, S2 Respiratory: Yes: Regular, CTA Bilaterally Gastrointestinal: Yes: Normal Bowel Sounds, Soft Musculoskeletal: Yes: WNL Extremities: Yes: WNL Neurological: Yes: Alert, Oriented Psychiatric: Yes: Alert, Oriented Labs: CBC, BMP 09/26/19 09:50 09/26/19 09:50 Assessment/Plan Problem List - Problems (1) Atelectasis of left lung Code(s): J98.11 - ATELECTASIS (2) Left rib fracture Code(s): S22.32XA - FRACTURE OF ONE RIB, LEFT SIDE, INIT FOR CLOS FX Qualifiers: Encounter type: initial encounter Rib fracture type: multiple ribs Fracture type: closed Qualified Code(s): S22.42XA - Multiple fractures of ribs , left side, initial encounter for closed fracture (3) PNA (pneumonia) Code(s): J18.9 - PNEUMONIA, UNSPECIFIED ORGANISM Qualifiers: Pneumonia type: due to unspecified organism Laterality: left Lung location: lower lobe of lung Qualified Code(s): J18.9 - Pneumonia, unspecified organism (4) Splenic rupture Code(s): S36.09XA - OTHER INJURY OF SPLEEN, INITIAL ENCOUNTER Assessment/Plan Leukocytosis PNA Traumatic splenic rupture s/p splenectomy Rib fractures Anemia continue current mgmt rest as per the team can switch patient to augmentin 875 mg po bid for 5 more days rest as per the team
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
[2019-09-26 13:50] VITALS: BP 105/72; PULSE 81; TEMP 98.5
[2019-09-26] MEDS: SODIUM CHLORIDE 1,000 ML IV SCH (14:41)
[2019-09-26] MEDS ORDERED: oxyCODONE HCL 5 MG TABLET PO ONE (14:45)
[2019-09-26] MEDS ORDERED: ACETAMINOPHEN 325 MG TABLET (FP) PO ONE (14:45)
--- NOTE | 2019-09-26 14:53 | DS ---
Physical Examination Vital Signs: Vital Signs Temperature 98.5 F 09/26/19 13:47 Pulse Rate 81 09/26/19 13:47 Respiratory Rate 20 09/26/19 13:47 Blood Pressure 105/72 09/26/19 13:47 O2 Sat by Pulse Oximetry (%) 96 09/26/19 09:00 Findings/Remarks: feels much better all f/u noted/ appreciated Constitutional: Yes: No Distress, Calm Neck: Yes: Supple Cardiovascular: Yes: Regular Rate and Rhythm Respiratory: Yes: CTA Bilaterally Gastrointestinal: Yes: Soft Edema: No Neurological: Yes: Alert Labs: CBC, BMP 09/26/19 09:50 09/26/19 09:50 Discharge Summary Problems reviewed: Yes Reason For Visit: FRACTURE OF RIB OF LEFT SIDE/PNEUMONIA Current Active Problems Atelectasis of left lung (Acute) Left rib fracture (Acute) PNA (pneumonia) (Acute) Splenic rupture (Acute) Hospital Course: admitted for pneumonia treated with abx pain issues better discussed in detail d/c home today f/u cxr in 4 weeks advised will f/u with his pmd - monday I also d/w pts pmd short supply of percocet given hcs looked also abx per i/d recommendation pt in agreement with all above meds reconcilled Condition: Stable - Instructions Referrals: Kameron Zhou MD [Primary Care Provider] - Disposition: HOME - Home Medications Comprehensive Discharge Medication List: Ambulatory Orders Amoxicillin/Potassium Clav [Augmentin 875-125 Tablet] 1 each PO BID 5 Days #10 tablet 09/26/19 Diclofenac/Hyaluronate/Niacin [Diclofen 3%-Hyaluron 2%-Niac4%] 30 gm TP DAILY # 1 gel..gram. 09/26/19 Ondansetron [Zofran -] 4 mg PO TID PRN 5 Days #15 tablet 09/26/19 Oxycodone HCl/Acetaminophen [Percocet 5-325 mg Tablet] 1 tab PO Q4H PRN #20 tablet MDD 4 09/26/19 Polyethylene Glycol 3350 [Miralax 119 gm Btl -] 17 gm PO DAILY bottle 09/26/19
== END 2019-09-26 16:42 | disposition home or self-care (01) | DRG 139 ==
LOC: JER 03:14 → JERBED 08:33 → J6S 15:17
PROVIDERS: ADMIT Internal Medicine; ATTEND Internal Medicine
PROC: HZ2ZZZZ Detoxification Services for Substance Abuse Treatment (ICD-10-PCS; principal; 2019-09-26)
DX: J18.9 Pneumonia, unspecified organism (principal); J98.11 Atelectasis; D64.9 Anemia, unspecified; F11.23 Opioid dependence with withdrawal; I45.10 Unspecified right bundle-branch block; F17.210 Nicotine dependence, cigarettes, uncomplicated; Y92.9 Unspecified place or not applicable; S36.09XA Other injury of spleen, initial encounter; J90 Pleural effusion, not elsewhere classified; S22.42XA Multiple fractures of ribs, left side, initial encounter for closed fracture; S30.1XXA Contusion of abdominal wall, initial encounter; D72.829 Elevated white blood cell count, unspecified; V89.2XXA Person injured in unspecified motor-vehicle accident, traffic, initial encounter
CPT/HCPCS: 36415; 71045-TC-FY; 71250-TC; 80053; 80307; 81003; 82550; 84484; 85025; 87040; 87086; 90732; 93005; 93010; 94010; 99284-25; G0008; G0009; J0131; J7030; Q2036

== ENCOUNTER 2019-10-20 10:49 | Emergency (ER) | payer OTHER ==
[2019-10-20 11:17] VITALS: BMI 21.9
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
[2019-10-20] MEDS ORDERED: ONDANSETRON 4 MG/2 ML VIAL IVPUSH ONE (11:57)
[2019-10-20] MEDS ORDERED: ACETAMINOPHEN 1000 MG/100 ML VIAL (NON FORMULARY) IVPB ONE (11:57)
[2019-10-20] MEDS ORDERED: SODIUM CHLORIDE 1,000 ML IV STA ×2 (11:57→13:52)
[2019-10-20] MEDS ORDERED: ONDANSETRON 4 MG/2 ML VIAL ONE (12:10)
[2019-10-20] MEDS ORDERED: ACETAMINOPHEN INJECTION 100 ML IVPB ONE (12:10)
[2019-10-20 12:43] LABS: BASO % 0.5 % (0-2.0); HEMATOCRIT 38.5 % (35.4-49); HEMOGLOBIN 12.4 GM/dL (11.7-16.9); LYMPH % 10.6 % (8-40); MCH 27.7 pg (25.7-33.7); MCHC 32.2 g/dl (32.0-35.9); MEAN CELL VOLUME 85.9 fl (80-96); MEAN PLT VOLUME 9.6 fl (7.5-11.1); MONO % 3.2 % (3.8-10.2); NEUT % 85.7 % (42.8-82.8); PLATELET COUNT 561 K/MM3 (134-434); RBC 4.48 M/mm3 (4.00-5.60); RDW 15.3 % (11.9-15.9); WHITE BLOOD COUNT 13.6 K/mm3 (4.0-10.0)
[2019-10-20 12:56] LABS: COCAINE, UR NEGATIVE ng/ml (CUTOFF=300); METHADONE, UR NEGATIVE ng/ml (CUTOFF=300); PHENCYCLIDINE,URINE NEGATIVE ng/ml (CUTOFF=25); URINE AMPHETAMINES NEGATIVE ng/ml (CUTOFF=500); URINE BARBITURATES NEGATIVE ng/ml (CUTOFF=200); URINE BENZODIAZEPINES NEGATIVE ng/ml (CUTOFF=200)
[2019-10-20 12:57] LABS: OPIATES, URI POSITIVE ng/ml (CUTOFF=300)
[2019-10-20 13:14] LABS: BILIRUBIN,TOTAL 0.4 mg/dL (0.2-1); BLOOD UREA NITROGEN 16.3 mg/dL (7-18); POTASSIUM 3.8 mmol/L (3.5-5.1); TOT PROT 8.6 g/dl (6.4-8.2)
[2019-10-20] MEDS ORDERED: ONDANSETRON 4 MG/2 ML VIAL IVPB ONE (13:52)
[2019-10-20] MEDS ORDERED: ONDANSETRON 4 MG TABLET PO ONE (13:58)
[2019-10-20] MEDS ORDERED: ONDANSETRON *ODT* 4 MG TABLET ONE (14:05)
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
[2019-10-20 14:12] VITALS: BP 125/72; PULSE 57; TEMP 98.7
== END 2019-10-20 14:14 | disposition home or self-care (01) ==
LOC: JER 10:49
DX: F11.20 Opioid dependence, uncomplicated (principal); Z87.828 Personal history of other (healed) physical injury and trauma; Z87.81 Personal history of (healed) traumatic fracture; Z90.81 Acquired absence of spleen
CPT/HCPCS: 36415; 80053; 80307; 85025; 99283-25; J0131; J7030

== ENCOUNTER 2021-08-09 18:53 | Inpatient (IN) | payer OTHER ==
[2021-08-09 20:39] VITALS: BMI 26.9
[2021-08-09] MEDS ORDERED: MAG HYDROX/AL HYDROX/SIMETH 30 ML UNIT-DOSE CUP PO PRN (21:25)
[2021-08-09] MEDS ORDERED: hydrOXYzine PAMOATE 25 MG CAPSULE (FP) PO PRN (21:25)
[2021-08-09] MEDS ORDERED: ONDANSETRON *ODT* 4 MG TABLET SL PRN (21:25)
[2021-08-09] MEDS ORDERED: BISMUTH SUBSALICYLATE 524 MG/30 ML PO PRN (21:25)
[2021-08-09] MEDS ORDERED: ACETAMINOPHEN 325 MG TABLET (FP) PO PRN ×2 (21:25)
[2021-08-09] MEDS ORDERED: MAGNESIUM HYDROX 2400MG/30ML ORAL SUSPENSION 30 ML CUP PO PRN (21:25)
[2021-08-09] MEDS ORDERED: MENTHOL/PHENOL 1 EACH UD MM PRN (21:25)
[2021-08-09] MEDS ORDERED: IBUPROFEN 400 MG TABLET (FP) PO PRN (21:25)
[2021-08-09] MEDS ORDERED: MAGNESIUM CITRATE 300 ML BOTTLE PO PRN (21:25)
[2021-08-09] MEDS ORDERED: cloNIDine HCL 0.1 MG TABLET PO PRN (21:28)
[2021-08-09] MEDS: THIAMINE HCL 100 MG TABLET (FP) PO SCH (23:37)
[2021-08-09] MEDS: MELATONIN 5 MG TABLETS PO SCH (23:38)
[2021-08-10] MEDS: NICOTINE POLACRILEX 2 MG GUM BUC PRN ×3 (00:13→19:04)
[2021-08-10] MEDS: diazePAM 5 MG TABLET PO PRN ×4 (00:14→22:09)
[2021-08-10] MEDS ORDERED: NICOTINE 14 MG/24 HOURS TOPICAL PATCH TD SCH (10:00)
[2021-08-10] MEDS: METHOCARBAMOL 500 MG TABLET PO PRN ×2 (10:34→18:11)
[2021-08-10] MEDS: PRENATAL VITAMINS W/ FOLIC ACID TABLET (FP) PO SCH (10:34)
[2021-08-10 10:53] LABS: HEMATOCRIT 42.2 % (35.4-49); HEMOGLOBIN 14.2 GM/dL (11.7-16.9); MCH 30.8 pg (25.7-33.7); MCHC 33.6 g/dl (32.0-35.9); MEAN CELL VOLUME 91.5 fl (80-96); MEAN PLT VOLUME 10.1 fl (7.5-11.1); PLATELET COUNT 252 10^3/uL (134-434); RBC 4.61 M/mm3 (4.00-5.60); RDW 14.8 % (11.9-15.9); WHITE BLOOD COUNT 13.2 K/mm3 (4.0-10.0)
[2021-08-10 11:03] LABS: BLOOD UREA NITROGEN 11.1 mg/dL (7-18)
[2021-08-10 11:04] LABS: CALCIUM 8.9 mg/dL (8.5-10.1)
[2021-08-10 11:05] LABS: ALBUMIN 3.3 g/dl (3.4-5.0)
[2021-08-10 11:07] LABS: CREATININE 0.9 mg/dL (0.55-1.3)
[2021-08-10 11:08] LABS: BILIRUBIN,TOTAL 0.5 mg/dL (0.2-1); TOT PROT 6.6 g/dl (6.4-8.2)
[2021-08-10] MEDS ORDERED: cloNIDine HCL 0.1 MG TABLET PO PRN (11:40)
[2021-08-10] MEDS ORDERED: methaDONE HCL 10 MG TABLET (FOR DETOX USE ONLY) PO ONE (11:40)
[2021-08-10] MEDS ORDERED: NICOTINE 10 MG CARTRIDGE (INHALER) IH PRN (12:52)
[2021-08-10] MEDS: THIAMINE HCL 100 MG TABLET (FP) PO SCH (22:09)
[2021-08-10] MEDS: MELATONIN 5 MG TABLETS PO SCH (22:09)
[2021-08-11] MEDS ORDERED: methaDONE HCL 10 MG TABLET (FOR DETOX USE ONLY) ONE (09:38)
[2021-08-11] MEDS: PRENATAL VITAMINS W/ FOLIC ACID TABLET (FP) PO SCH (10:22)
[2021-08-11] MEDS: diazePAM 5 MG TABLET PO PRN ×3 (10:24→22:22)
[2021-08-11 11:05] LABS: BASO % 0.4 % (0-2.0); EOS % 3.9 % (0-4.5); HEMATOCRIT 44.5 % (35.4-49); HEMOGLOBIN 14.8 GM/dL (11.7-16.9); LYMPH % 43.4 % (8-40); MCH 30.7 pg (25.7-33.7); MCHC 33.3 g/dl (32.0-35.9); MEAN CELL VOLUME 92.1 fl (80-96); MEAN PLT VOLUME 10.1 fl (7.5-11.1); MONO % 7.1 % (3.8-10.2); NEUT % 45.2 % (42.8-82.8); PLATELET COUNT 268 10^3/uL (134-434); RBC 4.84 M/mm3 (4.00-5.60); RDW 14.9 % (11.9-15.9); WHITE BLOOD COUNT 10.9 K/mm3 (4.0-10.0)
[2021-08-11] MEDS: METHOCARBAMOL 500 MG TABLET PO PRN ×2 (15:38→22:25)
[2021-08-11] MEDS: THIAMINE HCL 100 MG TABLET (FP) PO SCH (22:23)
[2021-08-11] MEDS: MELATONIN 5 MG TABLETS PO SCH (22:23)
[2021-08-12] MEDS ORDERED: methaDONE HCL 10 MG TABLET (FOR DETOX USE ONLY) PO ONE (10:00)
[2021-08-12] MEDS: PRENATAL VITAMINS W/ FOLIC ACID TABLET (FP) PO SCH (10:16)
[2021-08-12] MEDS: NICOTINE POLACRILEX 2 MG GUM BUC PRN (10:17)
[2021-08-12] MEDS: diazePAM 5 MG TABLET PO PRN ×2 (10:18→14:25)
[2021-08-12] MEDS: METHOCARBAMOL 500 MG TABLET PO PRN (10:18)
[2021-08-12] MEDS ORDERED: CYPROHEPTADINE HCL 4 MG TABLET PO SCH (11:00)
[2021-08-12 17:08] VITALS: BP 123/80; PULSE 99; TEMP 97.3
[2021-08-14] MEDS ORDERED: methaDONE HCL 10 MG TABLET (FOR DETOX USE ONLY) PO ONE (10:00)
== END 2021-08-12 16:56 | disposition left against medical advice (07) | DRG 770 ==
LOC: YASAS 18:53 → Y3N 22:34
PROVIDERS: ADMIT Allergy & Immunology; ATTEND Allergy & Immunology
PROC: HZ2ZZZZ Detoxification Services for Substance Abuse Treatment (ICD-10-PCS; principal; 2021-08-09)
DX: F11.20 Opioid dependence, uncomplicated (principal); F10.230 Alcohol dependence with withdrawal, uncomplicated; F12.20 Cannabis dependence, uncomplicated; F17.210 Nicotine dependence, cigarettes, uncomplicated; D72.829 Elevated white blood cell count, unspecified
CPT/HCPCS: 36415; 80053; 85025; 85027; 86780; C9803; U0003; U0005

== ENCOUNTER 2021-09-01 01:42 | Inpatient (IN) | payer OTHER ==
[2021-09-01 01:53] VITALS: BMI 27.3
[2021-09-01] MEDS ORDERED: MAGNESIUM HYDROX 2400MG/30ML ORAL SUSPENSION 30 ML CUP PO PRN (02:28)
[2021-09-01] MEDS ORDERED: BISMUTH SUBSALICYLATE 524 MG/30 ML PO PRN (02:28)
[2021-09-01] MEDS ORDERED: MAG HYDROX/AL HYDROX/SIMETH 30 ML UNIT-DOSE CUP PO PRN (02:28)
[2021-09-01] MEDS ORDERED: ACETAMINOPHEN 325 MG TABLET (FP) PO PRN ×2 (02:28)
[2021-09-01] MEDS ORDERED: IBUPROFEN 400 MG TABLET (FP) PO PRN (02:28)
[2021-09-01] MEDS ORDERED: ONDANSETRON *ODT* 4 MG TABLET SL PRN (02:28)
[2021-09-01] MEDS ORDERED: MENTHOL/PHENOL 1 EACH UD MM PRN (02:28)
[2021-09-01] MEDS ORDERED: MAGNESIUM CITRATE 300 ML BOTTLE PO PRN (02:28)
[2021-09-01] MEDS ORDERED: cloNIDine HCL 0.1 MG TABLET PO PRN (02:31)
[2021-09-01] MEDS ORDERED: methaDONE HCL 10 MG TABLET (FOR DETOX USE ONLY) PO ONE (02:31)
[2021-09-01] MEDS: diazePAM 5 MG TABLET PO PRN (03:42)
[2021-09-01] MEDS: METHOCARBAMOL 500 MG TABLET PO PRN ×3 (03:43→22:43)
[2021-09-01] MEDS: diazePAM 5 MG TABLET PO SCH ×4 (06:57→22:43)
[2021-09-01] MEDS: PRENATAL VITAMINS W/ FOLIC ACID TABLET (FP) PO SCH (10:53)
[2021-09-01] MEDS: NICOTINE 21 MG/24 HOURS TOPICAL PATCH TD SCH (10:56)
[2021-09-01] MEDS ORDERED: COLLOIDAL OATMEAL 1 BAR EACH TP PRN (11:26)
[2021-09-01 13:10] LABS: HIV INTERPRETATION NEGATIVE (NEGATIVE)
[2021-09-01 16:46] LABS: BLOOD UREA NITROGEN 18.2 mg/dL (7-18); CALCIUM 8.8 mg/dL (8.5-10.1); HEMATOCRIT 40.9 % (35.4-49); HEMOGLOBIN 13.7 GM/dL (11.7-16.9); MCH 30.6 pg (25.7-33.7); MCHC 33.4 g/dl (32.0-35.9); MEAN CELL VOLUME 91.7 fl (80-96); MEAN PLT VOLUME 10.2 fl (7.5-11.1); PLATELET COUNT 282 10^3/uL (134-434); RBC 4.47 M/mm3 (4.00-5.60); WHITE BLOOD COUNT 19.4 K/mm3 (4.0-10.0)
[2021-09-01 16:47] LABS: ALBUMIN 3.4 g/dl (3.4-5.0)
[2021-09-01 16:50] LABS: CREATININE 0.9 mg/dL (0.55-1.3)
[2021-09-01 16:52] LABS: BILIRUBIN,TOTAL 0.3 mg/dL (0.2-1); TOT PROT 6.8 g/dl (6.4-8.2)
[2021-09-01] MEDS: NICOTINE POLACRILEX 2 MG GUM BUC PRN ×2 (18:15→22:46)
[2021-09-01] MEDS: MELATONIN 5 MG TABLETS PO SCH (22:42)
[2021-09-01] MEDS: THIAMINE HCL 100 MG TABLET (FP) PO SCH (22:42)
[2021-09-02] MEDS: METHOCARBAMOL 500 MG TABLET PO PRN ×2 (05:35→22:10)
[2021-09-02] MEDS: diazePAM 5 MG TABLET PO SCH ×3 (05:35→22:08)
[2021-09-02] MEDS ORDERED: methaDONE HCL 10 MG TABLET (FOR DETOX USE ONLY) ONE (09:06)
[2021-09-02] MEDS: PRENATAL VITAMINS W/ FOLIC ACID TABLET (FP) PO SCH (10:03)
[2021-09-02] MEDS: diazePAM 5 MG TABLET PO PRN ×2 (10:06→18:22)
[2021-09-02] MEDS: NICOTINE POLACRILEX 2 MG GUM BUC PRN (10:09)
[2021-09-02] MEDS: NICOTINE 21 MG/24 HOURS TOPICAL PATCH TD SCH (10:09)
[2021-09-02] MEDS: THIAMINE HCL 100 MG TABLET (FP) PO SCH (22:09)
[2021-09-02] MEDS: MELATONIN 5 MG TABLETS PO SCH (22:09)
[2021-09-03] MEDS: diazePAM 5 MG TABLET PO SCH ×2 (05:33→18:19)
[2021-09-03] MEDS: METHOCARBAMOL 500 MG TABLET PO PRN ×3 (05:34→22:08)
[2021-09-03] MEDS ORDERED: methaDONE HCL 10 MG TABLET (FOR DETOX USE ONLY) PO ONE (10:00)
[2021-09-03] MEDS: PRENATAL VITAMINS W/ FOLIC ACID TABLET (FP) PO SCH (10:04)
[2021-09-03] MEDS: NICOTINE 21 MG/24 HOURS TOPICAL PATCH TD SCH (10:07)
[2021-09-03] MEDS: diazePAM 5 MG TABLET PO PRN ×3 (10:08→22:09)
[2021-09-03 11:52] LABS: BASO % 0.8 % (0-2.0); EOS % 3.9 % (0-4.5); HEMATOCRIT 44.1 % (35.4-49); HEMOGLOBIN 14.6 GM/dL (11.7-16.9); LYMPH % 47.4 % (8-40); MCH 30.5 pg (25.7-33.7); MCHC 33.2 g/dl (32.0-35.9); MEAN CELL VOLUME 91.9 fl (80-96); MONO % 8.3 % (3.8-10.2); NEUT % 39.6 % (42.8-82.8); PLATELET COUNT 312 10^3/uL (134-434); RDW 14.6 % (11.9-15.9); WHITE BLOOD COUNT 11.2 K/mm3 (4.0-10.0)
[2021-09-03] MEDS ORDERED: COLLOIDAL OATMEAL 1 BAR EACH TP PRN (12:16)
[2021-09-03] MEDS: MELATONIN 5 MG TABLETS PO SCH (22:08)
[2021-09-03] MEDS: THIAMINE HCL 100 MG TABLET (FP) PO SCH (22:08)
[2021-09-04] MEDS ORDERED: diazePAM 5 MG TABLET PO ONE ×2 (06:00→08:09)
[2021-09-04] MEDS: METHOCARBAMOL 500 MG TABLET PO PRN (08:31)
[2021-09-04] MEDS ORDERED: methaDONE HCL 10 MG TABLET (FOR DETOX USE ONLY) ONE (09:15)
[2021-09-04] MEDS: PRENATAL VITAMINS W/ FOLIC ACID TABLET (FP) PO SCH ×2 (10:27→11:03)
[2021-09-04] MEDS: NICOTINE 21 MG/24 HOURS TOPICAL PATCH TD SCH (10:27)
[2021-09-04 13:14] VITALS: BP 107/77; PULSE 71; TEMP 97.8
[2021-09-05] MEDS ORDERED: methaDONE HCL 10 MG TABLET (FOR DETOX USE ONLY) PO ONE (10:00)
== END 2021-09-04 14:00 | disposition left against medical advice (07) | DRG 770 ==
LOC: YASAS 01:42 → Y3N 02:32
PROVIDERS: ADMIT Allergy & Immunology; ATTEND Allergy & Immunology
PROC: HZ2ZZZZ Detoxification Services for Substance Abuse Treatment (ICD-10-PCS; principal; 2021-09-01)
DX: F11.23 Opioid dependence with withdrawal (principal); F13.230 Sedative, hypnotic or anxiolytic dependence with withdrawal, uncomplicated; F12.20 Cannabis dependence, uncomplicated; F17.210 Nicotine dependence, cigarettes, uncomplicated; F41.9 Anxiety disorder, unspecified; F32.A Depression, unspecified; F19.24 Other psychoactive substance dependence with psychoactive substance-induced mood disorder; F19.282 Other psychoactive substance dependence with psychoactive substance-induced sleep disorder; Z56.0 Unemployment, unspecified
CPT/HCPCS: 36415; 80053; 85025; 85027; 86780; 87389; 93005; 93010; C9803; U0003; U0005

== ENCOUNTER 2021-10-07 00:53 | Inpatient (IN) | payer OTHER ==
[2021-10-07 01:28] VITALS: BMI 29.2
[2021-10-07] MEDS ORDERED: BISMUTH SUBSALICYLATE 524 MG/30 ML PO PRN (02:08)
[2021-10-07] MEDS ORDERED: MAGNESIUM CITRATE 300 ML BOTTLE PO PRN (02:08)
[2021-10-07] MEDS ORDERED: MENTHOL/PHENOL 1 EACH UD MM PRN (02:08)
[2021-10-07] MEDS ORDERED: NICOTINE POLACRILEX 2 MG GUM BUC PRN (02:08)
[2021-10-07] MEDS ORDERED: MAGNESIUM HYDROX 2400MG/30ML ORAL SUSPENSION 30 ML CUP PO PRN (02:08)
[2021-10-07] MEDS ORDERED: ACETAMINOPHEN 325 MG TABLET (FP) PO PRN ×2 (02:08)
[2021-10-07] MEDS ORDERED: IBUPROFEN 400 MG TABLET (FP) PO PRN (02:08)
[2021-10-07] MEDS ORDERED: MAG HYDROX/AL HYDROX/SIMETH 30 ML UNIT-DOSE CUP PO PRN (02:08)
[2021-10-07] MEDS ORDERED: ONDANSETRON *ODT* 4 MG TABLET SL PRN (02:08)
[2021-10-07] MEDS ORDERED: chlordiazePOXIDE HCL 25 MG CAPSULE PO PRN (02:27)
[2021-10-07] MEDS ORDERED: methaDONE HCL 10 MG TABLET (FOR DETOX USE ONLY) PO ONE (02:29)
[2021-10-07] MEDS: chlordiazePOXIDE HCL 25 MG CAPSULE PO SCH ×4 (06:11→22:08)
[2021-10-07] MEDS: PRENATAL VITAMINS W/ FOLIC ACID TABLET (FP) PO SCH (10:16)
[2021-10-07] MEDS: hydrOXYzine PAMOATE 25 MG CAPSULE (FP) PO PRN ×2 (10:17→23:16)
[2021-10-07] MEDS: METHOCARBAMOL 500 MG TABLET PO PRN (10:17)
[2021-10-07] MEDS: NICOTINE 14 MG/24 HOURS TOPICAL PATCH TD SCH (10:19)
[2021-10-07] MEDS: COLLOIDAL OATMEAL 1 BAR EACH TP PRN ×2 (10:56→11:27)
[2021-10-07 13:51] LABS: HEMATOCRIT 40.2 % (35.4-49); MCH 29.7 pg (25.7-33.7); MCHC 32.3 g/dl (32.0-35.9); MEAN PLT VOLUME 10.1 fl (7.5-11.1); PLATELET COUNT 255 10^3/uL (134-434); RBC 4.37 M/mm3 (4.00-5.60)
[2021-10-07 13:55] LABS: ALBUMIN 3.5 g/dl (3.4-5.0); BLOOD UREA NITROGEN 19.7 mg/dL (7-18)
[2021-10-07 13:57] LABS: CREATININE 0.9 mg/dL (0.55-1.3)
[2021-10-07 13:59] LABS: BILIRUBIN,TOTAL 0.2 mg/dL (0.2-1); TOT PROT 6.6 g/dl (6.4-8.2)
[2021-10-07] MEDS: NICOTINE 10 MG CARTRIDGE (INHALER) IH PRN ×2 (20:57→23:16)
[2021-10-07] MEDS ORDERED: MELATONIN 5 MG TABLETS PO SCH (22:00)
[2021-10-07] MEDS: MELATONIN 5 MG TABLETS PO SCH (22:08)
[2021-10-07] MEDS: THIAMINE HCL 100 MG TABLET (FP) PO SCH (22:08)
[2021-10-08] MEDS: chlordiazePOXIDE HCL 25 MG CAPSULE PO SCH ×4 (06:23→22:39)
[2021-10-08] MEDS: hydrOXYzine PAMOATE 25 MG CAPSULE (FP) PO PRN ×4 (06:24→22:39)
[2021-10-08] MEDS: METHOCARBAMOL 500 MG TABLET PO PRN ×2 (06:24→18:00)
[2021-10-08] MEDS ORDERED: methaDONE HCL 10 MG TABLET (FOR DETOX USE ONLY) ONE (09:09)
[2021-10-08] MEDS: cloNIDine HCL 0.1 MG TABLET PO PRN ×3 (09:14→22:43)
[2021-10-08] MEDS: PRENATAL VITAMINS W/ FOLIC ACID TABLET (FP) PO SCH (10:03)
[2021-10-08] MEDS: NICOTINE 10 MG CARTRIDGE (INHALER) IH PRN (10:08)
[2021-10-08] MEDS: NICOTINE 14 MG/24 HOURS TOPICAL PATCH TD SCH (10:08)
[2021-10-08] MEDS: MELATONIN 5 MG TABLETS PO SCH (22:37)
[2021-10-08] MEDS: THIAMINE HCL 100 MG TABLET (FP) PO SCH (22:38)
[2021-10-09] MEDS ORDERED: chlordiazePOXIDE HCL 10 MG CAPSULE PO PRN
[2021-10-09] MEDS: chlordiazePOXIDE HCL 10 MG CAPSULE PO SCH ×3 (06:08→18:24)
[2021-10-09] MEDS: METHOCARBAMOL 500 MG TABLET PO PRN ×2 (06:11→12:39)
[2021-10-09] MEDS: hydrOXYzine PAMOATE 25 MG CAPSULE (FP) PO PRN ×3 (06:14→18:23)
[2021-10-09] MEDS: cloNIDine HCL 0.1 MG TABLET PO PRN ×2 (09:15→18:26)
[2021-10-09] MEDS ORDERED: methaDONE HCL 10 MG TABLET (FOR DETOX USE ONLY) PO ONE (10:00)
[2021-10-09] MEDS: PRENATAL VITAMINS W/ FOLIC ACID TABLET (FP) PO SCH (10:08)
[2021-10-09] MEDS: NICOTINE 14 MG/24 HOURS TOPICAL PATCH TD SCH (10:11)
[2021-10-09 19:21] VITALS: BP 114/75; PULSE 59; TEMP 97.3
[2021-10-10] MEDS ORDERED: chlordiazePOXIDE HCL 10 MG CAPSULE PO SCH (05:00)
[2021-10-11] MEDS ORDERED: chlordiazePOXIDE HCL 10 MG CAPSULE PO ONE (05:00)
[2021-10-11] MEDS ORDERED: methaDONE HCL 10 MG TABLET (FOR DETOX USE ONLY) PO ONE (10:00)
== END 2021-10-09 20:10 | disposition left against medical advice (07) | DRG 770 ==
LOC: YASAS 00:53 → Y6N 05:05
PROVIDERS: ADMIT Allergy & Immunology; ATTEND Allergy & Immunology
PROC: HZ2ZZZZ Detoxification Services for Substance Abuse Treatment (ICD-10-PCS; principal; 2021-10-07)
DX: F11.23 Opioid dependence with withdrawal (principal); F10.230 Alcohol dependence with withdrawal, uncomplicated; F12.20 Cannabis dependence, uncomplicated; F17.210 Nicotine dependence, cigarettes, uncomplicated; F19.280 Other psychoactive substance dependence with psychoactive substance-induced anxiety disorder; F19.282 Other psychoactive substance dependence with psychoactive substance-induced sleep disorder; F32.A Depression, unspecified; F41.9 Anxiety disorder, unspecified; R79.89 Other specified abnormal findings of blood chemistry; Z87.01 Personal history of pneumonia (recurrent); Z56.0 Unemployment, unspecified
CPT/HCPCS: 36415; 80053; 85027; 86780; C9803; J0735; U0003; U0005